=== PATIENT | female | born 1950 | race Caucasian/White ===

== ENCOUNTER 2022-06-04 12:08 | Outpatient (CLI) | payer MEDICARE | END 2022-06-04 23:59 | disposition home or self-care (01) | LOC: CARD DIAG 12:08 | PROVIDERS: ATTEND Internal Medicine Cardiovascular Disease | DX: I37.1 Nonrheumatic pulmonary valve insufficiency (principal); R01.1 Cardiac murmur, unspecified | CPT/HCPCS: 93306 ==